=== PATIENT | male | born 1950 | race Caucasian/White ===

== ENCOUNTER 2023-09-19 10:49 | Outpatient (AMB) | payer MEDICARE, SELFPAY ==
--- NOTE | 2023-09-19 11:11 | A.SPINEOV_ITS ---
Intake Intake Visit Reasons: Continued mid back pain. Intake Note: Mr. Schneider is here today c/o back pain. MRI done @ [facility]/brought disc. Assessment & Plan Assessment & Plan (1) Costochondritis: Code(s): M94.0 - Chondrocostal junction syndrome [Tietze] Plan Dear Dr Haas, Thank you for referring Mr Schneider to our office today. This is a 73-year-old gentleman who presents to the office today for evaluation of a right-sided rib pain in the lower thoracic region this been going on for about a year. It is particularly worse at night when he is getting into bed her trying to lie down. It could also bother him when he is driving any hits of bone for a pothole. He tried some physical therapy in some basic pain medications to fix it but un fortunately it is not improving. He has no lower back pain. There are no lower extremity symptoms. He underwent some imaging which essentially looked normal but he came to see us in case there was something he we could possibly do to help him. There was an x-ray suggesting it may have had some calcification of the anterior longitudinal ligament consistent with skeletal hyperostosis. He has not yet seen anybody else about the symptom other than his primary care physician and the physical therapist. PMH: Hypertension, BPH, chronic venous insufficiency, hernia repair, colon resection, knee replacement, ankle replacement and cataract surgery Social hx: He does not smoke or drink alcohol Medications: Atorvastatin, irbesartan, omeprazole, L flus Karrie, Dilaudid and Zofran Allergies: Oxycodone makes him itch Physical exam: He is awake alert oriented, he has no lower extremity deficits, normal gait he has significant tenderness over the lower rib cage on the right side which is reproducible and consistent with his presenting symptoms. Imaging review: Basically what looks like a normal MRI of the lumbar spine and thoracic spine done at [facility] Impression: 73-year-old gentleman presenting with what sounds like a costal chondritis irritation with activity and when he sleeping. His imaging of his spine otherwise looks normal so obviously I do not have any surgery to offer him. I looked through the thoracic spine imaging and there was no foraminal compression. I am going to refer him to Pain Management see if there are any localized injections they could try to help him with his symptoms. Thank you for allowing us to care for your patient. The total time spent with this visit with this patient was 45 minutes reviewing history, physical exam, thoracic and lumbar imaging review, and implementation of treatment plan or further diagnostic testing Roel Anglin MD,PhD [facility] Coding Level of Care Code New Pt Level 4 (18243) Diagnoses Costochondritis M94.0
== END 2023-09-19 12:38 | disposition home or self-care (01) ==
PROVIDERS: PCP Internal Medicine; Visit Provider Physician Assistant
DX: M94.0 Chondrocostal junction syndrome [Tietze] (principal)
CPT/HCPCS: 99204

== ENCOUNTER → 2023-09-19 10:49 | Outpatient (BNVA) | payer MEDICARE, SELFPAY | PROVIDERS: PCP Internal Medicine; Visit Provider Physician Assistant | DX: M94.0 Chondrocostal junction syndrome [Tietze] (principal) | CPT/HCPCS: 99202 ==

== ENCOUNTER 2023-10-06 13:23 | Outpatient (AMB) | payer MEDICARE, SELFPAY ==
[2023-10-06 13:26] VITALS: PULSE 99; RESP 12; O2SAT 99; BMI 25.2
--- NOTE | 2023-10-06 13:26 | A.OFFVIS_ITS ---
Intake Vital Signs 10/06/23 13:26 Height 6 ft 3 in Weight 202 lb BMI 25.2 Blood Pressure Location Lt radial Position Sitting Respiration 12 Pulse 99 Pulse Source Pulse Oximeter Pulse Oximetry (%) 99 Oxygen Delivery Method Room Air Intake Visit Reasons: Chondrocostal junction syndrome [Tietze]/confirmed Allergies No Known Allergies Allergy (Verified 10/06/23 13:29) Medication List - Last Reconciled 10/06/23 by Ally Greenwood LPN alfuzosin ER 10 mg PO DAILY atorvastatin 20 mg PO BEDTIME diazepam 2 mg PO DAILY PRN hydrocodone-acetaminophen 5-325 mg 1 tab PO Q6H PRN irbesartan 300 mg PO DAILY lorazepam 0.5 mg PO BID PRN omeprazole 40 mg PO DAILY HPI Chondrocostal junction syndrome [Tietze]/confirmed HPI Details 73-year-old male who presents today to t he office for an evaluation of right lateral chest wall pain. The patient reports right-sided rib pain in the lower thoracic region, which started a year ago. He rates his pain at 4-10/10 in intensity. His pain is least at 2-3/10 in intensity and it is worse at 10/10 in intensity. It is described as an aching and stabbing sensation in the right mid back region towards the flank, especially when he lays on it. He sleeps on his right side and when he turns, he experiences severe sharp abdominal pain. The pain is worse at night when he is getting into bed and trying to lie down, and there is irritation with activity and when he is sleeping. He tried some physical therapy and pain medications with minimal benefit. He has no lower back pain or lower extremity symptoms. He has not used lidocaine patches. He has not yet seen anybody else a bout the symptom other than Roel Paez and the physical therapist. He used to work as a contractor. Review of Systems Const All systems reviewed & are unremarkable except as noted in HPI and below Physical Exam Vital Signs: Last Vital Signs Pulse 99 10/06/23 13:26 Resp 12 10/06/23 13:26 Pulse Ox 99 10/06/23 13:26 Oxygen Delivery Method Room Air 10/06/23 13:26 BMI result Body Mass Index 25.2 General: Appears afebrile. Alert and oriented. Mood and affect appropriate. Follows and participates in conversation appropriately. Respiratory effort is unlabored. Able to transition from sit to stand unassisted. Ambulates with bilaterally normal heel strike and toe off. There is a well circumscribed area of tenderness in between the right 11th and 12th ribs in the mid axillary line. There are some palpable subcutaneous fluctuant masses, 0.5 centimeter in size that could represent lipomas. Some of these are particularly tender. The proximal intercostal spaces are not tender. There is no midline back tenderness. On ultrasound examination, there are small subcentimeter palpable lipomas, which are painful on pressure with the ultrasound probe. Office Procedures Intralesion Corticosteroid Inj Details: Infiltration of subcutaneous lipoma of the right thoracic wall with corticosteroids, ultrasound guided After obtaining written consent, pre-procedure time-out was completed. The patient was placed in a left lateral position. The relevant levels of the intercostal nerves were physically palpated corresponding to the patient's pain and marked. Using ultrasound, the painful region was isolated and the painful lipomas were visualized. A 25-gauge needle was introduced into each of the lipomas and small amount of Kenalog was injected mixed with Bupivacaine 0.5%. The needle was removed, skin cleansed and a sterile bandage was applied. The pleura was visualized throughout, taking care not to puncture it during the procedure. The patient tolerated the procedure well and no complications were encountered. Following the procedure, the patient's vital signs and respiration were stable. The patient was discharged home in good condition with post-procedural instructions. Patient tolerated procedure well. Time Out: Immediately prior to the procedure, the following was verbally confirmed that there is a signed consent form and that the correct patient, planned procedure, site and side are consistent with documentation and that necessary equipment and/or blood products are available prior to the start of the case. Complications: none EBL: <1 cc Note: An ultrasound image of the injection was taken and stored in the permanent record. Informed consent given: Yes Consent signed: Yes Preparation: chlorhexidine Intralesional kenalog (mg/ml): 10 Total amount used (mL): 4 Hemostasis: pressure Patient tolerated procedure: well Complications: No Nerve Block Procedure code (CPT) selection complete Results Reviewed Results Reviewed: No imaging is available for review. Assessment & Plan Assessment & Plan (1) Right-sided chest wall pain: Code(s): R07.89 - Other chest pain Plan Patient is status post infiltration of subcutaneous lipomas of the right thoracic wall with corticosteroids, ultrasound guided. Patient tolerated procedure well and was discharged home in stable condition with discharge instructions. All questions were answered. Based on response to today's intervention, we will either repeat the intra lesional injection or trial an 11th intercostal nerve block instead. Scribed for Dr. Pablo by Agus Osman, medical billing and coding instructor, on 10/06/2023. I, Dr. Pablo, have personally reviewed and agree with the information entered by the scribe. Coding Level of Care Code New Pt Level 4 (74683) Diagnoses Right-sided chest wall pain R07.89
== END 2023-10-06 14:22 | disposition home or self-care (01) ==
PROVIDERS: PCP Internal Medicine; Referring Provider Physician Assistant; Visit Provider Internal Medicine
DX: R07.89 Other chest pain (principal); D17.1 Benign lipomatous neoplasm of skin and subcutaneous tissue of trunk
CPT/HCPCS: 11900; 99204

== ENCOUNTER → 2023-10-06 13:23 | Outpatient (BNVA) | payer MEDICARE, SELFPAY | PROVIDERS: PCP Internal Medicine; Referring Provider Physician Assistant; Visit Provider Internal Medicine | DX: R07.89 Other chest pain (principal) | CPT/HCPCS: 11900; 99202; J0665; J3301 ==

== ENCOUNTER 2023-11-10 09:41 | Outpatient (AMB) | payer MEDICARE, SELFPAY ==
--- NOTE | 2023-11-10 09:43 | MHC.OFFVIS ---
Intake Vital Signs 11/10/23 09:45 Height 6 ft 3 in Weight 195 lb BMI 24.4 BP 149/67 H Blood Pressure Location Lt brachial Position Sitting Respiration 12 Pulse 69 Pulse Source Pulse Oximeter Pulse Oximetry (%) 98 Oxygen Delivery Method Room Air Intake Visit Reasons: 1 MONTH FOLLOW UP Allergies No Known Allergies Allergy (Verified 11/10/23 09:46) Medication List - Last Reconciled 11/10/23 by Ally Greenwood LPN alfuzosin ER 10 mg PO DAILY atorvastatin 20 mg PO BEDTIME diazepam 2 mg PO DAILY PRN irbesartan 300 mg PO DAILY lorazepam 0.5 mg PO BID PRN omeprazole 40 mg PO DAILY HPI 1 MONTH FOLLOW UP HPI Details 73-year-old male who presents today to the office for a one-month follow-up. The patient reports 60-70 % relief following the procedure for about 3-4 weeks. He states that his pain has started to return over the past two days. He states that his current pain is not as bad as it was before the procedure. Past Procedures: 10/06/2023: Infiltration of subcutaneous lipoma of the right thoracic wall with corticosteroids, ultrasound guided: 60-70% relief. Review of Systems Const All systems reviewed & are unremarkable except as noted in HPI and below Physical Exam Vital Signs: Last Vital Signs Pulse 69 11/10/23 09:45 Resp 12 11/10/23 09:45 BP 149/67 H 11/10/23 09:45 Pulse Ox 98 11/10/23 09:45 Oxygen Delivery Method Room Air 11/10/23 09:45 BMI result Body Mass Index 24.4 General: Appears afebrile. Alert and oriented. Mood and affect appropriate. Follows and participates in conversation appropriately. Respiratory effort is unlabored. Able to transition from sit to stand unassisted. Ambulates with bilaterally normal heel strike and toe off. Results Reviewed Results Reviewed: No imaging is available for review. Assessment & Plan Assessment & Plan (1) Right-sided chest wall pain: Code(s): R07.89 - Other chest pain Plan I offered to repeat the injections today in the office but the patient would like to monitor his symptoms for now since they are not as bad as they were previously. The patient will reach out to us if his pain continues to persist or worsens. The patient will follow up as needed. Scribed for Dr. Pablo by Agus Osman, spanish medical interpreter, on 11/10/2023. I, Dr. Pablo, have personally reviewed and agree with the information entered by the scribe. Coding Level of Care Code Est Pt Level 3 (39242) Diagnoses Right-sided chest wall pain R07.89
[2023-11-10 09:45] VITALS: BP 149/67; PULSE 69; RESP 12; O2SAT 98; BMI 24.4
== END 2023-11-10 09:54 | disposition home or self-care (01) ==
PROVIDERS: PCP Internal Medicine; Visit Provider Internal Medicine
DX: R07.89 Other chest pain (principal)
CPT/HCPCS: 99213

== ENCOUNTER → 2023-11-10 09:41 | Outpatient (BNVA) | payer MEDICARE, SELFPAY | PROVIDERS: PCP Internal Medicine; Visit Provider Internal Medicine | DX: R07.89 Other chest pain (principal) | CPT/HCPCS: 99212 ==

== ENCOUNTER 2025-08-16 14:04 | Outpatient (REF) | payer MEDICARE, SELFPAY ==
--- OUTSIDE RECORDS SUMMARY | 2025-08-10 23:59 | XMS_ITS | Continuity of Care Document ---
Author Organization [facility] Address [address] [place] [phone]- Care Team Providers Care Parts Person Name Role Phone Chelsea DAIGLE, Shirley Mishra Primary Care Physician Encounter [facility] Date(s): 07/11/25 - 08/10/25 [facility] [address] [place] [phone] Encounter Type: Triage Allergies, Adverse Reactions, Alerts Substance Criticality Severity Reaction Reaction Severity Status lisinopril Cough Active Other Environmental Allergy 1 Active 1seasonal allergies Immunizations Given and Recorded Vaccine Date Status Refusal Reason influenza virus vaccine, inactivated 07/16/23 Pedro Luis rded influenza virus vaccine, inactivated 07/19/22 Pedro Luis rded influenza virus vaccine, inactivated 07/16/19 Pedro Luis rded influenza virus vaccine, inactivated 07/31/18 Pedro Luis rded SARS-CoV-2 (COVID-19) mRNA-1273 vaccine 05/05/22 R ecorded SARS-CoV-2 (COVID-19) mRNA-1273 vaccine 07/11/21 R ecorded SARS-CoV-2 (COVID-19) mRNA-1273 vaccine 01/11/21 G iven SARS-CoV-2 (COVID-19) mRNA-1273 vaccine 12/14/20 G iven pneumococcal 23-valent vaccine 08/24/19 Given pneumococcal 23-valent vaccine 05/08/16 Recorded pneumococcal 13-valent vaccine 05/02/15 Recorded zoster vaccine, inactivated 04/18/11 Recorded diphtheria/tetanus/pertussis, acel(DTaP) 09/07/09 Recorded Medications aspirin 81 mg oral capsule 1 capsule = 81 mg, By Mouth, Every 24 hours, # 90 capsule, 3 Refills, Maintenance, 08/08/25 3:45:00PM EDT, [facility]/pharmacy #[id number], Partial fill upon patient request if the prescription is for a scheduleII opioid drug., 194, cm, 08/08/25 15:32:00 EDT, Height, 101.2, kg, 06/16/25 16:39:00 EDT, Dry Weight Start Date: 08/08/25 Status: Ordered Medication Dispense Status: Completed Quantity: 90.0 Unit: capsule Total Allowed Fills: 4 Fills Dispensed: 0 atorvastatin 20 mg oral tablet 1 tablet, By Mouth, Daily, # 90 tablet, 3 Refills, 10/18/24 1:18:00 PM EST, [facility]/pharmacy #[id number], 190, cm, 10/18/24 12:54:00 EST, Height, 88, kg, 04/06/23 17:28:00 EDT, Dry Weight Start Date: 10/18/24 Status: Ordered Medication Dispense Status: Completed Quantity: 90.0 Unit: tablet Total Allowed Fills: 4 Fills Dispensed: 0 clopidogrel 75 mg oral tablet 75 mg, By Mouth, Daily, # 90 tablet, Refills 3, Tot. Refills 3, Maintenance, 06/15/25 8:42:00 AM EDT, Route to Pharmacy Electronically, [facility]/pharmacy #[id number], Partial fill upon patient request if the prescription is for a schedule II opioid drug., 190, cm, 04/15/25 9:14:00 EDT, Height Start Date: 06/15/25 Status: Ordered Medication Dispense Status: Completed Quantity: 90.0 Unit: tablet Total Allowed Fills: 4 Fills Dispensed: 0 gabapentin 100 mg oral capsule 100 mg, 1, capsule, By Mouth, 3 times a day, # 90 capsule, Refills 5, Maintenance, 06/15/25 7:05:00 AM EDT, Partial fill upon patient request if the prescription is for a schedule II opioid drug. Start Date: 06/15/25 Status: Ordered Medication Dispense Status: Completed Quantity: 90.0 Unit: capsule Total Allowed Fills: 1 Fills Dispensed: 0 irbesartan 75 mg oral tablet 1 tablet = 75 mg, By Mouth, Daily, # 30 tablet, 0 Refills, Maintenance, 08/10/25 9:47:00 AM EDT, Tablet, [facility]/pharmacy #[id number], Partial fill upon patient request if the prescription is for a schedule IIopioid drug., 194, cm, 08/08/25 15:32:00 EDT, Height, 101.2, kg, 06/16/25 16:39:00 EDT, Dry Weight Start Date: 08/10/25 Status: Ordered Medication Dispense Status: Completed Quantity: 30.0 Unit: tablet Total Allowed Fills: 1 Fills Dispensed: 0 LORazepam 0.5 mg oral tablet 1 TO 2 TABS, By Mouth, 3 times a day, PRN NEEDED FOR ANXIETY/PANIC, # 28 tablet, 0 Refills, Maintenance, 01/30/24 10:51:00 AM EDT, [facility]/pharmacy #[id number], 190, cm, 11/14/23 15:04:00 EST, Height, 88, kg, 04/06/23 17:28:00 EDT, Dry Weight Start Date: 01/30/24 Stop Date: 02/27/24 Status: Ordered Medication Dispense Status: Completed Quantity: 28.0 Unit: tablet Total Allowed Fills: 1 Fills Dispensed: 0 Metoprolol Succinate ER 25 mg oral tablet, extended release 12.5 mg, 0.5, tablet, By Mouth, Daily, # 15 tablet, Refills 0, Tot. Refills 0, Maintenance, 06/17/2511:35:00 AM EDT, Route to Pharmacy Electronically, [facility]/pharmacy #[id number], Partial fill upon patient request if the prescription is for a schedule II opioid drug., 194, cm, 06/17/25 10:49:00 EDT, Height,101.2, kg, 06/16/25 16:39:00 EDT, Dry Weight Start Date: 06/17/25 Stop Date: 07/17/25 Status: Ordered Medication Dispense Status: Completed Quantity: 15.0 Unit: tablet Total Allowed Fills: 1 Fills Dispensed: 0 omeprazole 40 mg oral enteric coated capsule 1 capsule = 40 mg, By Mouth, Daily, # 90 capsule, 3 Refills, Maintenance, 08/28/23 1:53:00 PM EST, EC Capsule, [facility], Partial fill upon patient request if the prescription is for a schedule II opioid drug., 190, cm, 07/18/23 11:39:00 EDT, Height, 88, kg, 04/06/23 17:28:00EDT, Dry Weight Start Date: 08/28/23 Status: Ordered Medication Dispense Status: Completed Quantity: 90.0 Unit: capsule Total Allowed Fills: 4 Fills Dispensed: 0 Probiotic Formula By Mouth, Daily, 0 Refills, Maintenance, 04/09/23 12:12:00 PM EDT, Partial fill upon patient requestif the prescription is for a schedule II opioid drug. Start Date: 04/09/23 Status: Ordered Medication Dispense Status: Completed Total Allowed Fills: 1 Fills Dispensed: 0 Tylenol Extra Strength 500 mg oral tablet 2 tablet = 1,000 mg, By Mouth, 3 times a day, PRN as needed for pain, # 90 tablet, 0 Refills, Maintenance, 11/19/22 6:54:00 AM EST, Tablet, Partial fill upon patient request if the prescription is fora schedule II opioid drug. Start Date: 11/19/22 Status: Ordered Medication Dispense Status: Completed Quantity: 90.0 Unit: tablet Total Allowed Fills: 1 Fills Dispensed: 0 Problem List Condition Confirmation Course Effective Dates Status H ealth Status Informant Acquired renal cystic disease Confirmed Active Anxiety Confirmed Active Benign prostatic hyperplasia Confirmed Active Degeneration of lumbar intervertebral disc Confirmed Active Diverticular disease Confirmed Active Benign essential tremor Confirmed Active Hyperlipidemia Confirmed Active Hypertensive disorder Confirmed Active Kidney stone Confirmed Active Osteoarthritis of hip Confirmed Active Knee osteoarthritis Confirmed Active Panic attacks Confirmed Active AF (paroxysmal atrial fibrillation) Confirmed Active Small bowel bacterial overgrowth syndrome Confirmed Active Thoracic spondylosis Confirmed Active Traumatic arthropathy-ankle Confirmed Active Tubular adenoma of colon - due 08/13 dr zapata Confirmed Active Social History Social History Type Response Sexual Sexually involved in last 6 months: No. Smoking Status Former smoker, quit more than 30 days ago; Number of years: 2; Stopped at age: 18; entered on: 12/25/21 Sex Sex Representation Male (finding) Patient Care team information Care Team Personnel Name: Chelsea DAIGLE, Shirley Mishra Position: Reference Physician Member Role: PCP Address: [address] [place] [address]- Telecom: Name: Wendy Ernandez RN Position: ADALGISA RN Member Role: Primary Care Nurse Care Team Related Persons Name: RONNA HALIE Insurance Providers Guarantor name: ANJU FRIEND [facility] Plan Information #: 1 Payer: MEDICARE B Payer Identifier: NA Member Number: [id number] Group Number: NA Subscriber Identifier: ANTOLIN Relationship to Subscriber: self Coverage Type: NA Coverage Verification Date: NA Telecom: NA Address: [facility] Information #: 2 Payer: MEDEX SECONDARY ONLY Payer Identifier: NA Member Number: [id number] Group Number: ANTOLIN Subscriber Identifier: ANTOLIN Relationship to Subscriber: self Coverage Type: Medicare Other Coverage Verification Date: NA Telecom: NA Address:
--- OUTSIDE RECORDS SUMMARY | 2025-08-10 23:59 | XMS_ITS | Continuity of Care Document ---
Author Organization [facility] Address [address] [place] [phone]- Care Team Providers Care Tray Drier Name Role Phone Chelsea DAIGLE, Shirley Mishra Primary Care Physician [place] [facility] [place]/11[place]25 - 08/10/25 [facility] [address] [place] [phone]- Encounter Type: Triage Allergies, Adverse Reactions, Alerts [...] capsule, 3 Refills, Maintenance, 08/08/25 3:45:00PM EDT, [facility]/pharmacy #[id number], Partial fill upon patient request if [...] tablet, 3 Refills, 10/18/24 1:18:00 PM EST, [facility]/pharmacy #[id number], 190, cm, 10/18/24 12:54:00 EST, Height, 88, kg, 04/06/23 17:28:00 EDT, Dry Weight Start Date: 10/18/24 Status: Ordered Medication Dispense Status: Completed Quantity: 90.0 Unit: tablet Total Allowed Fills: 4 Fills Dispensed: 0 clopidogrel 75 mg oral tablet 75 mg, By Mouth, Daily, # 90 tablet, Refills 3, Tot. Refills 3, Maintenance, 06/15/25 8:42:00 AM EDT, Route to Pharmacy Electronically, [facility]/pharmacy #[id number], Partial fill upon patient request if [...] 0 Refills, Maintenance, 01/30/24 10:51:00 AM EDT, [facility]/pharmacy #[id number], 190, cm, 11/14/23 15:04:00 EST, Height, [...] 06/17/2511:35:00 AM EDT, Route to Pharmacy Electronically, [facility]/pharmacy #[id number], Partial fill upon patient request if [...] Maintenance, 08/28/23 1:53:00 PM EST, EC Capsule, [facility] Mail [facility], Partial fill upon [...] - due 08/13 dr zapata Confirmed Active Vital Signs Most recent to oldest [Reference Range]: 1 Height 194 cm (07/11/25 2:31 PM) Weight 101 kg (07/11/25 2:31 PM) Social History Social History Type Response Sexual Sexually involved in last 6 months: No. Smoking Status Former smoker, quit more than 30 days ago; Number of years: 2; Stopped at age: 18; entered on: 12/25/21 Sex Sex Representation Male (finding) Patient Care team information Care Team Personnel Name: Shirley Tran MD Position: Reference Physician Member Role: PCP Address: [address] [place] [id number] Telecom: Name: Wendy Ernandez RN Position: AADLGISA RN Member Role: Primary Care Nurse Care Team Related Persons Name: HALIE FRIEND Insurance Providers Guarantor name: ANJU FRIEND Health Plan Information #: 1 Payer: MEDICARE B Payer Identifier: NA Member Number: [id number] Group Number: NA Subscriber Identifier: NA Relationship to Subscriber: self Coverage Type: NA Coverage Verification Date: NA Telecom: NA Address: NA Health Plan Information #: 2 Payer: MEDEX SECONDARY ONLY Payer Identifier: NA Member Number: [id number] Group Number: NA Subscriber Identifier: NA Relationship to Subscriber: self Coverage Type: Medicare Other Coverage Verification Date: NA Telecom: NA Address: NA
[2025-08-16 18:49] LABS: Prostate Specific Antigen 2.28 ng/mL (<0.05-4.0)
[2025-08-16 18:54] LABS: Alanine Aminotransferase 29 U/L (0-40); Albumin Level 4.4 g/dL (3.5-5.0); Alkaline Phosphatase 103 U/L (39-117); Anion Gap 13 (12-20); Aspartate Amino Transferase 35 U/L (5-37); Blood Urea Nitrogen 23 mg/dL (9-16); Calcium 9.0 mg/dL (8.4-10.2); Carbon Dioxide 25 mmol/L (22-29); Chloride 109 mmol/L (96-108); Cholesterol 147 mg/dL (<200); Estimated Glomerular Filt Rate > 60; HDL Cholesterol 37 mg/dL (>40); Potassium 4.3 mmol/L (3.3-5.1); Sodium 143 mmol/L (135-145); Total Protein 6.6 g/dL (6.5-8.0); Triglycerides 98 mg/dL (<150)
[2025-08-16 19:04] LABS: Hematocrit 45.2 % (42.0-52.0); Hemoglobin 15.2 g/dl (14.0-18.0); Imm Gran Abs Auto 0.03 X10*3/uL (0.00-0.03); Imm Gran Pct Auto 0.3 % (0.0-0.4); Lymphocytes Absolute Auto 5.7 X10*3/uL (1.2-4.9); MANUAL DIFF FLAG SCAN; Mean Corpuscular HGB Conc 33.6 g/dl (31.0-36.0); Mean Corpuscular Hemoglobin 30.6 pg (27.0-33.0); Mean Corpuscular Volume 90.9 fL (80.0-98.0); NRBC Abs Auto 0.000 X10*3/uL (0.0-0.012); NRBC Pct Auto 0.0 /100WBC (0.0-0.2); Platelet Count 199 X10*3/uL (160-400); Red Blood Count 4.97 X10*6/uL (4.60-5.80); SCAN SMEAR FLAG 1; White Blood Count 10.5 X10*3/uL (4.8-10.8)
== END 2025-08-16 14:05 | disposition home or self-care (01) ==
LOC: HO.WFDLDS 14:04
PROVIDERS: PCP Internal Medicine; Visit Provider Internal Medicine
DX: I10 Essential (primary) hypertension (principal); R35.89 Other polyuria; R42 Dizziness and giddiness; I48.91 Unspecified atrial fibrillation; E78.5 Hyperlipidemia, unspecified; F41.9 Anxiety disorder, unspecified; K63.89 Other specified diseases of intestine; Z12.5 Encounter for screening for malignant neoplasm of prostate; Z13.1 Encounter for screening for diabetes mellitus
CPT/HCPCS: 36415; 80053; 80061; 83036; 84153; 84443; 85025; 96127; 99212

== ENCOUNTER 2025-08-16 14:04 | Outpatient (AMB) | payer MEDICARE, SELFPAY ==
--- NOTE | 2025-08-16 14:19 | MHC.PC.OV ---
Vital Signs 08/16/25 14:31 Height 6 ft 2.13 in Weight 223 lb BMI 28.5 BP 108/74 Blood Pressure Location Lt brachial Position Sitting Respiration 14 Pulse 60 Pulse Source Pulse Oximeter Temp 97.9 F Temp Source Oral Pulse Oximetry (%) 98 Oxygen Delivery Method Room Air Intake Visit Reasons: Transfer from [facility] Intake Note: New patient visit Pyrometer Operator Required: No Allergies No Known Allergies Allergy (Verified 08/16/25 14:30) Tobacco use date assessed: 08/16/25 Fall risk assessment: No Falls in past year Last assessed Fall Risk: 08/16/25 Dental Screening Dental Screen Date: 08/16/25 Did you have a dental visit in the last 12 months?: Yes Did you have a dental problem in the last 6 months where you did not have access to dental care?: No Was dental information given to patient?: Patient has dentist HPI HPI Comments History of Present Illness Details The patient is a 75 year old with a past medical hsitory of diverulosis, diverulitis with microperforation, hyptertension, hyperlipidemia, arthritis, anxiety presenting to reestalbish care. CV: Following with cardiology-Dr Hackett. Summer 2023-presented to hospital in [place] with Afib. Was on eliquis. Admitted in May after Watchman procedure (procedure 06/15/[address] Ludwig). Developed pericarditis. Was treated with colchicine. He will be following up for potential ablation upcoming. He recently Karrie Lucas-thinking about cardiac MRI Neuro: Had long history of lightheadedness, vertigo, dizziness. This has been stable GI; Followed for SIBO, IBS. Double endoscopy in 2019 ROS CONSTITUTIONAL: Denies weight loss, fever and chills. HEENT: Denies changes in vision and hearing. RESPIRATORY: Denies SOB and cough. CV: Denies palpitations and CP GI: Denies abdominal pain, nausea, vomiting and diarrhea. : Denies dysuria and urinary frequency. MSK: Denies new myalgia and joint pain. SKIN: Denies rash and pruritus. NEUROLOGICAL: Denies headache PSYCHIATRIC: Denies recent changes in mood. PHYSICAL EXAM: GENERAL: Alert and oriented x 3. NAD EYES: EOMI. Anicteric. HENT: Moist mucous membranes. No scleral icterus. No cervical lymphadenopathy. LUNGS: Clear to auscultation bilaterally. CARDIOVASCULAR: Regular rate and rhythm. No murmur. No JVD. ABDOMEN: Soft, non-tender +bs EXTREMITIES: No edema. Non-tender. SKIN: No rashes or lesions. Warm. NEUROLOGIC: No focal neurological deficits. CN II-XII grossly intact PSYCHIATRIC: Cooperative. Appropriate mood and affect REPLACED BY [facility] Social History [facility] Patient Tobacco Use Status: Never used Tobacco e-Cigarette/Vaping Use: Never Used Second Hand Smoke Exposure: No service: No Current occupational status: retired Cognitive needs: No Hearing needs: No Vision needs: No Questionnaire PHQ-9 Over the last 2 weeks, how often have you been bothered by any of the following problems? 1. Little interest or pleasure in doing things: not at all 2. Feeling down, depressed, or hopeless: not at all 3. Trouble falling or staying asleep, or sleeping too much: not at all 4. Feeling tired or having little energy: not at all 5. Poor appetite or overeating: not at all 6. Feeling bad about yourself - or that you are a failure or have let yourself or your family down: not at all 7. Trouble concentrating on things, such as reading the newspaper or watching television: not at all 8. Moving or speaking so slowly that other people could have noticed. Or the opposite - being so fidgety or restless that you have been moving around a lot more than usual: not at all 9. Thoughts that you would be better off or of hurting yourself in some way: not at all Total score: 0 Depression Screening Interpretation: Negative Depression Screening Done: Yes 43858 - PHQ-9 Billing: Yes Source: Developed by Drs. Gallo Brown, Matilda Hart, Willy Sheehan and colleagues, with an educational leonor from Personally. Thrive Questionnaire Date Thrive assessed: 08/09/25 I am a: Patient What is your living situation today?: I have a steady place to live Within the past 12 months, did the food you bought not last and you didn't have the money to get more?: Never true Within the past 12 months, did you worry whether your food would run out before you got money to buy more?: Never true Do you have trouble paying for medicines?: No Do you have trouble getting transportation to medical appointments?: No Do you have trouble paying your heating and electricity bill?: No Do you have trouble taking care of your child, family member or friend?: No Do you have trouble with day-to-day activities such as bathing, preparing meals, shopping, managing finances, etc.?: No Are you currently unemployed and looking for a job?: No Are you interested in more education?: No Please select the resources that you would like help with: None Currently or been in a relationship where the following occur: No concerns reported THRIVE Score: 0 AUDIT C Alcohol Use Questionnaire (AUDIT-C) 1. How often do you have a drink containing alcohol?: Never Total Score: 0 TEJA-7 AMB Questionnaire TEJA-7 Feeling nervous, anxious, or on edge: 0 = Not at all Not being able to stop or control worryin = Not at all Worrying too much about different things: 0 = Not at all Trouble relaxin = Not at all Being so restless that it is hard to sit still: 0 = Not at all Becoming easily annoyed or irritable: 0 = Not at all Feeling afraid as if something awful might happen: 0 = Not at all Total TEJA-7 score (0-4 normal; 5-9 mild; 10-14 moderate; 15-21 severe): 0 Source: Developed by Drs. Gallo Brown, Matilda Hart, Willy Sheehan and colleagues, with an educational leonor from Personally. Physical exam (Primary Care) Vital Signs: Last Vital Signs Temp 97.9 F 08/16/25 14:31 Pulse 60 08/16/25 14:31 Resp 14 08/16/25 14:31 BP 108/74 08/16/25 14:31 Pulse Ox 98 08/16/25 14:31 Oxygen Delivery Method Room Air 08/16/25 14:31 BMI result Body Mass Index 28.5 Tobacco/Smoking Status: Tobacco use Status Tobacco use date assessed 08/16/25 08/16/25 14:32 Patient Tobacco Use Status Never used Tobacco 08/16/25 14:32 e-Cigarette/Vaping Use Never Used 08/16/25 14:32 PHQ-9: PHQ-9 Score PHQ-9: Total score 0 08/16/25 14:42 Depression Screening Interpretation: Negative Thrive Assessment: Date of Thrive Assessment Date Thrive assessed 08/09/25 08/16/25 14:20 Currently or been in a relationship where the following occur: No concerns reported Coding Level of Care Code Est Pt Level 4 (84458) Complex EM visit Add On G2211 Diagnoses Atrial fibrillation, unspecified type I48.91 Atrial fibrillation type: unspecified Vertigo R42 Small intestinal bacterial overgrowth (SIBO) K63.89 Additional Codes PHQ-9 - 28787 - PHQ-9 Billing: Yes ([id number]) Assessment & Plan Assessment & Plan (1) Atrial fibrillation: Code(s): I48.91 - Unspecified atrial fibrillation Category: Medical Qualifiers: Atrial fibrillation type: unspecified Qualified Code(s): I48.91 - Unspecified atrial fibrillation (2) Vertigo: Code(s): R42 - Dizziness and giddiness Category: Medical (3) Small intestinal bacterial overgrowth (SIBO): Code(s): K63.89 - Other specified diseases of intestine Category: Medical Plan 75 year old to reestablish care Past medical, surgical, social, family history reviewed CV-stable. May be going for upcoming ablation. blood pressure is adequately controlled Anxiety stable on lorazepam Labs ordered Orders: Orders Hemoglobin A1c 08/16/25 I48.91 - Unspecified atrial fibrillation, R35.89 - Other polyuria, R42 - Dizziness and giddiness, Z12.5 - Encounter for screening for malignant neoplasm of prostate Prostate Specific Antigen 08/16/25 I48.91 - Unspecified atrial fibrillation, R35.89 - Other polyuria, R42 - Dizziness and giddiness, Z12.5 - Encounter for screening for malignant neoplasm of prostate Complete Blood Count Auto Diff 08/16/25 I48.91 - Unspecified atrial fibrillation, R35.89 - Other polyuria, R42 - Dizziness and giddiness, Z12.5 - Encounter for screening for malignant neoplasm of prostate Comprehensive Met. Panel 08/16/25 I48.91 - Unspecified atrial fibrillation, R35.89 - Other polyuria, R42 - Dizziness and giddiness, Z12.5 - Encounter for screening for malignant neoplasm of prostate Lipid Panel 08/16/25 I48.91 - Unspecified atrial fibrillation, R35.89 - Other polyuria, R42 - Dizziness and giddiness, Z12.5 - Encounter for screening for malignant neoplasm of prostate TSH reflex Free T4 08/16/25 I48.91 - Unspecified atrial fibrillation, R35.89 - Other polyuria, R42 - Dizziness and giddiness, Z12.5 - Encounter for screening for malignant neoplasm of prostate Medications: New gabapentin 100 mg PO TID 270 caps 3RF Changed From lorazepam 0.5 mg PO BID PRN To lorazepam 0.5 mg PO BID 30 days PRN 60 tabs 0RF anxiety Refilled lorazepam 0.5 mg PO BID PRN 60 tabs 0RF anxiety 30 days
[2025-08-16 14:31] VITALS: BP 108/74; PULSE 60; RESP 14; TEMP 36.6; O2SAT 98; BMI 28.5
--- OUTSIDE RECORDS SUMMARY | 2025-08-16 18:31 | XMS_ITS | Patient Health Record ---
Author Organization [facility] Address [address] [facility] [address] [place] [address] Care Team Providers Care Retinal Surgeon Name Role Phone Grant Singh Unavailable [phone] Lorenzo Sesay MD Unavailable Unavailable Reason For Referral No Information Problems Problem Type SNOMED Code ICD Code Onset Dates Problem Status W/U Status Risk Notes Problem Carpal tunnel syndrome (92162606) Carpal tunnel syndrome, bilateral upper limbs (G56.03) Active confirmed Problem Lesion of ulnar nerve (729145331) Lesion of ulnar nerve, bilateral upper limbs (G56.23) Active confirmed Encounters Encounter Location Date Provider Diagnosis [facility] [address] [facility] [place] [address] [place] [address] 12/28/2024 Grant Singh Carpal tunnel syndrome, bilateral upper limbs G56.03 and Lesion of ulnar nerve, bilateral upper limbs G56.23 Assessments Encounter Date Diagnosis (ICD Code) Assessment Notes Treatment Notes Treatment Clinical Notes Section Notes 12/28/2024 Carpal tunnel syndrome, bilateral upper limbs (ICD-10 - G56.03) Test Date: 12/28/2024 Patient: Bobo Schneider : 1950 Physician: Grant Singh M.D. Sex: Male Height: 6' 3 Ref Phys: Dr. Sesay ID#: Weight: 210 lbs. Patient Complaints: Patient is a 74 year old male with arm pain. He is right handed and has history of possible right cubital tunnel release in the . He now has developed numbness in his hands specifically in his pinky and ring finger. He denies radiating neck pain. His temperature prior to testing was 98.3. EMG & NCS Findings: Sensory Studies: The Right and Left Median Sensory Nerves revealed a prolonged latency and low normal amplitude. The Right Ulnar Sensory Nerve revealed a no response. The Left Ulnar Sensory Nerve revealed a prolonged latency and normal amplitude. The median vs. radial comparison studies revealed peak latency differences. Motor Studies: The Right and Left Median Motor Nerves revealed a normal latency, amplitude, and conduction velocity. The Left Ulnar Motor Nerve from the ADM revealed a normal latency and amplitude with diffuse conduction velocity slowing. From the FDI it revealed a borderline latency, normal amplitude, and diffuse conduction velocity slowing. The Right Ulnar Motor Nerve from the ADM revealed a normal latency and low normal amplitude with conduction velocity slowing across the elbow. From the FDI it revealed a prolonged latency, low normal amplitude and conduction velocity slowing across the elbow. EMG: The right FDI revealed reduced recruitment and the remaining sampled muscles in the right upper extremity (as indicated in the following table) showed no evidence of electrical instability. Impression: There are changes to the right ulnar sensory and motor nerves that may be post cubital tunnel release in nature and otherwise would represent an ulnar neuropathy at the right elbow. Findings are suggestive of ulnar neuropathy at the left elbow (based off the prolonged sensory latency and diffuse motor conduction velocity). There is bilateral mild compression of the median nerve at the carpal tunnel. There are changes in all of the sensory nerves tested that may be from the individual nerve entrapments or may represent a superimposed polyneuropathy affecting the upper extremities. Currently, there are no electrophysiological findings of a radiculopathy. Recommendations: Follow up with Dr. Sesay. 12/28/2024 Lesion of ulnar nerve, bilateral upper limbs (ICD-10 - G56.23) Test Date: 12/28/2024 Patient: Bobo Schneider : 1950 Physician: Grant Singh M.D. Sex: Male Height: 6' 3 Ref Phys: Dr. Sesay ID#: Weight: 210 lbs. Patient Complaints: Patient is a 74 year old male with arm pain. He is right handed and has history of possible right cubital tunnel release in the . He now has developed numbness in his hands specifically in his pinky and ring finger. He denies radiating neck pain. His temperature prior to testing was 98.3. EMG & NCS Findings: Sensory Studies: The Right and Left Median Sensory Nerves revealed a prolonged latency and low normal amplitude. The Right Ulnar Sensory Nerve revealed a no response. The Left Ulnar Sensory Nerve revealed a prolonged latency and normal amplitude. The median vs. radial comparison studies revealed peak latency differences. Motor Studies: The Right and Left Median Motor Nerves revealed a normal latency, amplitude, and conduction velocity. The Left Ulnar Motor Nerve from the ADM revealed a normal latency and amplitude with diffuse conduction velocity slowing. From the FDI it revealed a borderline latency, normal amplitude, and diffuse conduction velocity slowing. The Right Ulnar Motor Nerve from the ADM revealed a normal latency and low normal amplitude with conduction velocity slowing across the elbow. From the FDI it revealed a prolonged latency, low normal amplitude and conduction velocity slowing across the elbow. EMG: The right FDI revealed reduced recruitment and the remaining sampled muscles in the right upper extremity (as indicated in the following table) showed no evidence of electrical instability. Impression: There are changes to the right ulnar sensory and motor nerves that may be post cubital tunnel release in nature and otherwise would represent an ulnar neuropathy at the right elbow. Findings are suggestive of ulnar neuropathy at the left elbow (based off the prolonged sensory latency and diffuse motor conduction velocity). There is bilateral mild compression of the median nerve at the carpal tunnel. There are changes in all of the sensory nerves tested that may be from the individual nerve entrapments or may represent a superimposed polyneuropathy affecting the upper extremities. Currently, there are no electrophysiological findings of a radiculopathy. Recommendations: Follow up with Dr. Sesay. Plan Of Treatment No Information Insurance Providers Payer Name Payer Address Payer Phone Subscriber Number Group Number Insured Name Patient Relationship to Insured Coverage Start Date Coverage End Date [place] Medicare Part [place] J9 [facility] [address] [address] [place], [place] [id number] [phone] [id number] Bobo Schneider Self - patient is the insured [facility] and [facility] [address] [place], [place] [id number] Bobo Schneider Self - patient is the insured Medical (General) History Medical History History ICD Code high blood pressure,kidney disease / sto traci AFIB, Vascular Insufficiency in right le g If you currently have or hav e ever been diagnosed with cancer in the past, please list the type(s) of cancer here:: Skin cancer (squamous cell)
--- OUTSIDE RECORDS SUMMARY | 2025-08-16 18:31 | XMS_ITS | Clinical Summary ---
Author Organization [facility] Address [address] [place] [address] Care Team Providers Care Stunt Performer Name Role Phone Unavailable Primary Care Provider Unavailabl e Social History Tobacco Use Types Packs/Day Years Used Date Smoking Tobacco: Never Assessed Sex and Gender Information Value Date Recorded Sex Assigned at Not on file Gender Identity Not on file Sexual Orientation Not on file Plan of Treatment Not on file
== END 2025-08-16 14:59 | disposition home or self-care (01) ==
LOC: HO.HMCFM 14:05
PROVIDERS: PCP Internal Medicine; Visit Provider Internal Medicine
DX: I48.91 Unspecified atrial fibrillation (principal); R42 Dizziness and giddiness; K63.89 Other specified diseases of intestine

== ENCOUNTER 2025-09-28 11:25 | Outpatient (REF) | payer MEDICARE, SELFPAY ==
[2025-09-28 15:31] LABS: Hematocrit 44.6 % (42.0-52.0); Hemoglobin 14.9 g/dl (14.0-18.0); Imm Gran Abs Auto 0.03 X10*3/uL (0.00-0.03); Imm Gran Pct Auto 0.3 % (0.0-0.4); Lymphocytes Absolute Auto 5.5 X10*3/uL (1.2-4.9); MANUAL DIFF FLAG SCAN; Mean Corpuscular HGB Conc 33.4 g/dl (31.0-36.0); Mean Corpuscular Hemoglobin 30.7 pg (27.0-33.0); Mean Corpuscular Volume 92.0 fL (80.0-98.0); NRBC Abs Auto 0.000 X10*3/uL (0.0-0.012); NRBC Pct Auto 0.0 /100WBC (0.0-0.2); Platelet Count 192 X10*3/uL (160-400); Red Blood Count 4.85 X10*6/uL (4.60-5.80); SCAN SMEAR FLAG 1; White Blood Count 9.7 X10*3/uL (4.8-10.8)
== END 2025-09-28 11:26 | disposition home or self-care (01) ==
LOC: HO.WFDLDS 11:25
PROVIDERS: Visit Provider Internal Medicine
DX: D72.820 Lymphocytosis (symptomatic) (principal)
CPT/HCPCS: 85025